=== PATIENT | male | born 1980 | race Caucasian/White ===

== ENCOUNTER 2021-02-20 16:58 | Emergency (ER) | payer MEDICAID, SELFPAY ==
[2021-02-20 17:34] VITALS: BP 131/80; PULSE 100; RESP 16; TEMP 36.9; O2SAT 99; BMI 20.5
--- NOTE | 2021-02-20 18:27 | ED_ITS ---
HPI - Skin/Abscess/Foreign Bdy General Chief complaint: Skin/Abscess/Foreign Body Stated complaint: rash Time Seen by Provider: 02/20/21 18:17 Source: patient Mode of arrival: ambulatory Limitations: no limitations History of Present Illness HPI narrative: Itching rash all over his body after staying in a motel. No fevers, chills, joint pain, vomiting, diarrhea, abdominal pain, difficulty swallowing or breathing Related Data Previous Rx's Medication Instructions Recorded hydroxyzine HCl 50 mg PO TID PRN #10 tab 02/20/21 permethrin 1 appl TOPICAL Q14D #60 g 02/20/21 Allergies Allergy/AdvReac Type Severity Reaction Status Date / Time apple Allergy Anaphylaxis Verified 02/20/21 17:42 Review of Systems Review of Systems: Yes all other systems are reviewed and are negative Constitutional: Constitutional: Reports no additional constitutional complaints, Denies body ache(s), Denies chills, Denies fever(s), Denies headache(s) and Denies weakness Eyes: Eyes: Reports no additional eye complaints and Denies change in vision ENT: Reports system reviewed and no additional complaints, except as documented, Denies dizziness, Denies headache(s), Denies nasal congestion, De nies nasal discharge and Denies neck pain Cardiovascular: Cardiovascular: Reports no additional cardiovascular complaints, Denies chest pain, Denies leg edema and Denies dyspnea Respiratory: Respiratory: Reports no additional respiratory complaints, Denies cough and Denies dyspnea Gastrointestinal: Gastrointestinal: Reports no additional gastrointestinal complaints, Denies abdominal pain, Denies diarrhea, Denies nausea and Denies vomiting Genitourinary: Genitourinary: Denies urinary incontinence Musculoskeletal: Musculoskeletal: Reports no additional musculoskeletal complaints, Denies back pain, Denies arthralgias, Denies joint swelling, Denies neck pain, Denies numbness and Denies tingling Integumentary/Breasts: Skin/Breast: Reports system reviewed and no additional complaints, except as docu and Reports rash Neurologic: Reports system reviewed and no additional complaints, except as documented, Denies Abnormal speech present, Denies dizziness, Denies headache(s), Denies numbness, Denies tingling and Denies weakness PMFSH Past Medical History Attestation statement: The following information was validated with the patient. Source: old records reviewed and nursing notes reviewed Medical History No known health problems Social History Social History Advance Directives: No Advance Directives Information Provided: Yes Physical Exam Vital Signs: Vital Signs: Last Vital Signs Temp 98.4 F 02/20/21 17:34 Pulse 100 02/20/21 17:34 Resp 16 02/20/21 17:34 BP 131/80 02/20/21 17:34 Pulse Ox 99 02/20/21 17:34 Body Mass Index 20.5 Const: General: cooperative, healthy appearing, comfortable and no acute distress Orientation/consciousness: patient oriented x3 Limitations: no limitations HENMT: Head: Yes normal to inspection Ears: hearing grossly normal bilaterally General nose exam: Normal external nose present Face and sinus: Yes normal facial exam Mouth: Normal oral and palatal mucosa present Throat: Yes posterior oropharynx normal Eyes: General: appearance normal, both eyes and all related structures Pupils: Equal, round and reactive pupils present Neck: Neck: Yes normal visual inspection Chest: Chest palpation & inspection: normal inspection of the chest Resp: Effort & Inspection: normal respiratory effort Auscultation: clear to auscultation bilaterally Cardio: Rate: regular rate Rhythm: regular rhythm Peripheral pulses: Peripheral pulses 2+ throughout GI: Inspection: Yes normal to inspection Palpation (GI): Soft to palpation and nontender Auscultation: normal bowel sounds Back/Spine/Pelvis: Thoracic/Lumbar Spine: thoracic and lumbar spine normal to inspection Skin: Other: Urticarial rash noted over the extremities, chest, back, between the digits of the fingers with excoriation General skin exam: no rashes or lesions noted Neuro: General: patient oriented x3, no focal motor deficits and normal sensation to monofilament Cranial nerves: Yes Equal, round and reactive pupils present Cognition (Neuro): normal cognition Speech: No Abnormal speech present Gait exam (Neuro): Normal gait present Motor exam (neuro): 5/5 motor strength present throughout Extrem: General: Yes normal to inspection Course Course Course Narrative: Exam consistent with scabies Reviewed discharge instructions with patient as well as care. Reviewed worrisome signs and symptoms and when to return to the emergency department. Comfortable discharge home. Discharge Plan Discharge Clinical Impression: Scabies Patient Disposition: Home, Self-Care Instructions: Scabies (ED) Additional Instructions: Wash all linen, bedding, clothing in hot water Repeat dose of medication if continuing to have symptoms after 24 hrs Prescriptions: New permethrin 5 % cream 1 appl topical Q14D Qty: 60 RF: 0 hydroxyzine HCl 50 mg tablet 50 mg PO TID PRN (Reason: itching) Qty: 10 RF: 0 Referrals: [facility] [Primary Care Provider] - 2 days
== END 2021-02-20 18:37 | disposition home or self-care (01) ==
PROVIDERS: Emergency Provider Emergency Medicine
DX: B86 Scabies (principal)
CPT/HCPCS: 99283

== ENCOUNTER 2021-02-23 20:53 | Emergency (ER) | payer MEDICAID, SELFPAY ==
[2021-02-23 21:13] VITALS: BP 137/95; PULSE 85; RESP 18; TEMP 36.6; O2SAT 98; BMI 20.5
[2021-02-23 22:30] VITALS: BP 119/83; PULSE 86; RESP 18; TEMP 36.6; O2SAT 98
--- NOTE | 2021-02-23 22:36 | ED_ITS ---
HPI - Skin/Abscess/Foreign Bdy General Chief complaint: Skin/Abscess/Foreign Body Stated complaint: Scabies Time Seen by Provider: 02/23/21 22:36 Source: patient Mode of arrival: ambulatory Limitations: no limitations History of Present Illness HPI narrative: Patient is a 40-year-old male with no significant past medical history who was just seen here 3 days ago with a report of scabies, is unsure how long he has been itchy for, he states he shaved his entire body and is very upset about it because he states he is super clean. No fevers, chills, joint pain, vomiting, diarrhea, abdominal pain, difficulty swallowing or breathing problems. Patient was given permethrin cream from this ED 3 days ago as well as hydroxyzine for the itching but states that is not working. Related Data Previous Rx's Medication Instructions Recorded hydroxyzine HCl 50 mg PO TID PRN #10 tab 02/20/21 permethrin 1 appl TOPICAL Q14D #60 g 02/20/21 ivermectin 9 mg PO Q2W #6 tab 02/23/21 Allergies Allergy/AdvReac Type Severity Reaction Status Date / Time apple Allergy Anaphylaxis Verified 02/20/21 17:42 Review of Systems Review of Systems: Yes all other systems are reviewed and are negative PMFSH Past Medical History Medical History No known health problems Social History Social History Advance Directives: No Advance Directives Information Provided: Yes Physical Exam Vital Signs: Vital Signs: Last Vital Signs Temp 97.8 F 02/23/21 22:30 Pulse 86 02/23/21 22:30 Resp 18 02/23/21 22:30 BP 119/83 02/23/21 22:30 Pulse Ox 98 02/23/21 22:30 Body Mass Index 20.5 Const: General: cooperative, healthy appearing, acute distress (over his situation, very animated and loud) mild and anxious Nutritional Appearance: thin Orientation/consciousness: patient oriented x3 HENMT: Head: Yes normal to inspection Eyes: General: appearance normal, both eyes and all related structures Resp: Effort & Inspection: normal respiratory effort and able to speak in complete sentences Skin: Other: Patient has several lesions all over his body, urticarial excoriations on his scalp, in between his fingers, up his right arm and patient states there are more in his buttock area Neuro: General: patient oriented x3 Course Course Course Narrative: 40-year-old male with no significant past medical history complaining of treatment for scabies not working despite using it for 3 days. Will prescribe oral ivermectin as patient will probably be more likely to be compliant and equally as effective. Discharge Plan Discharge Clinical Impression: Scabies Patient Disposition: Home, Self-Care Instructions: Scabies (ED) Additional Instructions: I have prescribed for you a medication called I remarked in, I you are to take 3 tabs tomorrow and then 3 additional tabs in 14 days. It is imperative that you follow the instructions attach to this discharge paperwork to ensure you clear your household of a scabies infestation. If you have no resolution of your symptoms after both doses +7 days a from the 2nd dose, please follow-up with you r PCP. You can continue to take the hydroxyzine prescribed to you by this emergency department 3 days ago while taking this medication. Prescriptions: New ivermectin 3 mg tablet 9 mg PO Q2W Qty: 6 RF: 0 No Action permethrin 5 % cream 1 appl topical Q14D Qty: 60 RF: 0 hydroxyzine HCl 50 mg tablet 50 mg PO TID PRN (Reason: itching) Qty: 10 RF: 0
== END 2021-02-23 23:02 | disposition home or self-care (01) ==
PROVIDERS: Emergency Provider Internal Medicine
DX: B86 Scabies (principal)
CPT/HCPCS: 99283; 99284

== ENCOUNTER 2021-03-17 20:01 | Emergency (ER) | payer MEDICAID, SELFPAY ==
--- NOTE | 2021-03-17 20:56 | PC.NURSE ---
PT NOT PRESENT IN WR WHEN CALLED FOR TRIAGE.
--- NOTE | 2021-03-17 21:06 | PC.NURSE ---
PT CALLED A SECOND TIME, NO RESPONSE
== END 2021-03-17 21:21 | disposition left against medical advice (07) ==
PROVIDERS: Emergency Provider Internal Medicine; PCP Internal Medicine
DX: B86 Scabies (principal)

== ENCOUNTER 2021-03-18 21:22 | Emergency (ER) | payer MEDICAID, SELFPAY ==
[2021-03-18 21:55] VITALS: BP 122/65; PULSE 77; RESP 16; TEMP 36.3; O2SAT 97; BMI 27.3
--- NOTE | 2021-03-18 21:59 | ED.GENADULT ---
HPI - General Adult General Stated complaint: scabies Time Seen by Provider: 03/18/21 21:43 Source: patient Mode of arrival: ambulatory Limitations: no limitations History of Present Illness HPI narrative: Patient comes emergency room of itching. Patient states that he has scabies, has been treated in the past. Patient states that he shaved his head, his arms and abdomen/chest but he still complaining of itching. Patient denies fever chills. Patient states that he has tried cleaning multiple times all his clothes in his bed sheets. Patient is very upset because his mother recently threw him out of her house due to his current situation. Related Data Previous Rx's Medication Instructions Recorded hydroxyzine HCl 50 mg PO TID PRN #10 tab 02/20/21 permethrin 1 appl TOPICAL Q14D #60 g 02/20/21 ivermectin 9 mg PO Q2W #6 tab 02/23/21 hydroxyzine HCl 50 mg PO TID PRN #10 tab 03/18/21 permethrin 1 appl TOPICAL Q14D #60 g 03/18/21 Allergies Allergy/AdvReac Type Severity Reaction Status Date / Time apple Allergy Anaphylaxis Verified 02/20/21 17:42 Review of Systems Review of Systems: Constitutional : No Weight loss, No Fever, No Chills, No Night Sweats, No Fatigue, No Malaise ENT/Mouth : No Hearing loss, No Ear Pain, No Nasal Congestion, No Sinus Pain, No Hoarseness, No sore throat, No Rhinorrhea, No Swallowing Difficulty Eyes: No Eye Pain, No Swelling, No Redness, No Foreign Body, No Discharge, No Vision Changes Cardiovascular : No Chest Pain, No SOB, No Dyspnea on Exertion, No Orthopnea, No Edema, No Palpitations Respiratory : No Cough, No Sputum, No Wheezing, No Smoke Exposure, No Dyspnea Gastrointestinal : No Nausea, No Vomiting, No Diarrhea, No Constipation, No abdominal Pain, No Hematochezia, No Melena Genitourinary : no irregular bleeding, No Dysuria, No Urinary Frequency, No Hematuria, No Urinary Incontinence, No Urgency, No Flank Pain, No Urinary Flow Changes, No Hesitancy Musculoskeletal : No joint pain, No Myalgias, No Joint Swelling Skin : Itching Neuro : No Weakness, No Numbness, No Paresthesias, No Loss of Consciousness, No Dizziness, No Headache Psych : No Anxiety/Panic, No Depression, No SI/HI/AH/VH, No Social Issues, Heme/Lymph: No Bruising, No Bleeding,No Lymphadenopathy Endocrine : No Polyuria, No Polydipsia, No Temperature Intolerance PMFSH Past Medical History Medical History No known health problems Physical Exam Vital Signs: Appearance: Alert. Oriented X3. No acute distress. Eyes: Pupils equal, round and reactive to light. ENT: Pharynx normal. Neck: Normal inspection. Neck supple. No lymph nodes noted. No crepitus CVS: Normal heart rate and rhythm. Pulses normal. Normal S1 and S2 Respiratory: No respiratory distress. Breath sounds normal. No Wheezing. No rales Abdomen: Soft and nontender. No rigidity. No distention. good BS x4 Skin: Skin warm and dry. Scalp is shaved, no signs of tracks of scabies, no rash at all in the scalp. Patient has been picking on his skin in the forearms. Patient does not have a rash in his hands that resembles scabies or bedbugs Extremities: No lower extremity edema. No lower extremity edema. No Lacerations. No Rash Neuro: Oriented X 3. No motor deficit. No sensory deficit. Moving all extermities. No slurred speech. Course Course Course Narrative: Patient has been picking on his skin especially forearms, however I did not see a rash at this consistent with scabies. Patient is convinced that he has in his head as well. Patient rubbed his head, pulled a piece of skin/sebum from his scalp which has no rash, about 5 mm long, patient stated that this was a scabies mite. He repeated this multiple times, I discussed with the patient that what he was showing me, it is not a scabies mite. Patient states that he has been pulling long bugs from his forearms as well. I discussed with the patient that scabies mites are very small. Patient states that he has a jar at home full of these mites that he has been collecting. Discussed with the patient that ideally this sample should be analyzed by pathology. Patient requesting permethrin. Discharge Plan Discharge Clinical Impression: Rash and nonspecific skin eruption Patient Disposition: Home, Self-Care Instructions: Acute Rash (ED) Additional Instructions: Please follow-up with your primary care physician tomorrow. If you have any worsening or new symptoms, please return to the emergency room or call 911 Prescriptions: New permethrin 5 % cream 1 appl topical Q14D Qty: 60 RF: 0 hydroxyzine HCl 50 mg tablet 50 mg PO TID PRN (Reason: itching) Qty: 10 RF: 0 No Action ivermectin 3 mg tablet 9 mg PO Q2W Qty: 6 RF: 0 permethrin 5 % cream 1 appl topical Q14D Qty: 60 RF: 0 hydroxyzine HCl 50 mg tablet 50 mg PO TID PRN (Reason: itching) Qty: 10 RF: 0
== END 2021-03-18 22:58 | disposition home or self-care (01) ==
LOC: HO.ED 22:25
PROVIDERS: Emergency Provider Emergency Medicine; PCP Internal Medicine
DX: R21 Rash and other nonspecific skin eruption (principal)
CPT/HCPCS: 99283

== ENCOUNTER 2023-06-06 23:42 | Emergency (ER) | payer SELFPAY ==
[2023-06-06 23:48] VITALS: BP 132/84; BP 144/99; PULSE 111; PULSE 90; RESP 18; TEMP 37.2; O2SAT 97; O2SAT 98; BMI 21.8
--- NOTE | 2023-06-07 00:27 | ED_ITS ---
HPI - General Adult General Chief complaint: ETOH/Substance Use Stated complaint: OD,NARCAN GIVEN W/G0OD RESULT PER EMS Time Seen by Provider: 06/06/23 23:57 Source: patient Mode of arrival: ambulatory Limitations: no limitations History of Present Illness HPI narrative: 42-year-old male came in by ambulance after was found unresponsive by his mother. This is a 42-year-old male who admitted to sniffing 1 bag of heroin and drinking alcohol last night when home patient became unresponsive mother called 911 patient was given 4 mg of Narcan nasally by the police with good response, patient in the emergency department is awake, alert, oriented x3, denies any intentional overdosing or suicidal ideation. Related Data Previous Rx's Medication Instructions Recorded hydroxyzine HCl 50 mg tablet 50 mg PO TID PRN itching #10 tabs 02/20/21 permethrin 5 % topical cream 1 appl topical Q14D 2 doses #60 02/20/21 grams ivermectin 3 mg tablet 9 mg PO Q2W 2 doses #6 tabs 02/23/21 hydroxyzine HCl 50 mg tablet 50 mg PO TID PRN itching #10 tabs 03/18/21 permethrin 5 % topical cream 1 appl topical Q14D 2 doses #60 03/18/21 grams Allergies Allergy/AdvReac Type Severity Reaction Status Date / Time apple Allergy Anaphylaxis Verified 02/20/21 17:42 Review of Systems Review of Systems: all other systems are reviewed and are negative Constitutional: Reports as per HPI and Reports no additional constitutional complaints Eyes: Reports as per HPI and Reports no additional eye complaints Reports system reviewed and no additional complaints, except as documented Cardiovascular: Reports as per HPI and Reports no additional cardiovascular complaints Respiratory: Reports as per HPI and Reports no additional respiratory complaints Gastrointestinal: Reports as per HPI and Reports no additional gastrointestinal complaints Genitourinary: Reports no additional female genitourinary complaints Musculoskeletal: Reports no additional musculoskeletal complaints Skin/Breast: Reports system reviewed and no additional complaints, except as docu Psychiatric: Reports no additional psychiatric complaints Endocrine: Reports no additional endocrine complaints Hematologic/Lymphatic: Reports no additional hematologic/lymphatic complaints Allergic/Immunologic: Reports no additional allergic/immunologic complaints Reports system reviewed and no additional complaints, except as documented and Reports Abnormal speech present [facility] Past Medical History Medical History No known health problems Social History Social History Advance Directives: No Advance Directives Information Provided: Yes Physical Exam ED Vital Signs: Vital Signs - 24 hr 06/06/23 23:48 Temperature 98.9 F Pulse Rate 90 Respiratory Rate 18 Blood Pressure 132/84 Pulse Oximetry 97 Oxygen Delivery Method Room Air BMI result Body Mass Index 21.8 vital signs have been reviewed as appeared to be correct. Blood pressure normal. Heart rate normal. Respiration rate normal. Temperature normal. Oxygen saturation normal. Appearance: Alert. Oriented X3. No acute distress. Head: Normal external exam. Normocephalic. Atraumatic. No Amin signs noted. No raccoon eyes noted Eyes: PERRLA. EOMI. Conjunctiva and sclera normal. Eyelids normal. ENT: TM's Normal. Pharynx normal. Uvula midline. Moist mucous membranes. No trismus noted. No drooling noted. No muffled voice noted. Neck: Normal inspection. Neck supple. FROM. No adenopathy. Thyroid Normal. No meningeal signs. No neck mass noted. CVS: Normal heart rate and rhythm. Heart sound normal. No murmurs noted. Pulses normal throughout. Respiratory: No respiratory distress. Painless inspiration. Breath sounds normal. No wheezes/rales/rhonchi noted. Chest nontender. No accessory muscle usage noted or decreased air movement noted. Abdomen: Soft and nontender. Bowel sounds normal in all 4 quadrants. No distention noted. No organomegaly noted. No visible injury noted. Back: No CVA tenderness. Full range of motion noted. Skin: Skin warm and dry. Normal skin color. Normal skin turgor. No rashes/lesions/lacerations noted. Extremities: No lower extremity edema. Extremities exhibit normal range of motion. Extremities nontender. Neuro: Oriented X 3. Cranial nerve exam: II-XII are grossly intact No motor deficit. No sensory deficit. Reflexes normal. Course Course Course Narrative: 42-year-old male came in after lost consciousness after incidental heroin od, no si or hi, doesn't want to wait for care team, but will go home with narcan. Medical Decision Making Differential Diagnosis Differential Diagnoses: The differential diagnosis associated with the presentation includes (heroin od, SI.) Admission/Observation Consideration of admission/observation: Escalation of care including admission/observation considered Discharge Plan Discharge Clinical Impression: Accidental heroin overdose Patient Disposition: Home, Self-Care Instructions: Polysubstance Abuse (ED) Prescriptions: No Action ivermectin 3 mg tablet 9 mg PO Q2W Qty: 6 0RF Rx Instructions: Please take 3 tabs today and 3 additional tabs in 14 days. permethrin 5 % cream 1 appl topical Q14D Qty: 60 0RF Rx Instructions: apply second treatment 14 days after first treatment if live lice remain hydroxyzine HCl 50 mg tablet 50 mg PO TID PRN (Reason: itching) Qty: 10 0RF permethrin 5 % cream 1 appl topical Q14D Qty: 60 0RF Rx Instructions: apply second treatment 14 days after first treatment if live lice remain hydroxyzine HCl 50 mg tablet 50 mg PO TID PRN (Reason: itching) Qty: 10 0RF
[2023-06-07] MEDS: Naloxone HCl Nasal TAKE HOME 4 MG SPRAY 8 MG NOSTRILALT (00:48)
[2023-06-07] MEDS: Acetaminophen 325 MG TABLET 650 MG PO (00:49)
[2023-06-07 00:50] VITALS: BP 119/80; PULSE 72; RESP 20; O2SAT 100
== END 2023-06-07 01:04 | disposition home or self-care (01) ==
PROVIDERS: Emergency Provider Emergency Medicine
DX: T40.1X1A Poisoning by heroin, accidental (unintentional), initial encounter (principal); R40.4 Transient alteration of awareness; F19.10 Other psychoactive substance abuse, uncomplicated; Y92.013 Bedroom of single-family (private) house as the place of occurrence of the external cause
CPT/HCPCS: 99283; 99284